=== PATIENT | female | born 1970 | race Two or more races ===

== ENCOUNTER 2021-03-13 10:30 | Inpatient (IN) | payer OTHER ==
[~2021-03-13] VITALS: Ht 152.4 cm; Wt 70.3 kg
[2021-03-13] MEDS ORDERED: VITAMIN C500 M6 PO (14:46)
[2021-03-13] MEDS ORDERED: ABATRON LIQUID474 ML PO (14:46)
== END 2021-03-18 12:30 | disposition home or self-care (01) | DRG 743 ==
LOC: O/R 03-16 07:24 → SURH 03-16 07:24
PROVIDERS: ADMIT Obstetrics & Gynecology Gynecologic Oncology; ATTEND Obstetrics & Gynecology Gynecologic Oncology
PROC: 0UT20ZZ Resection of Bilateral Ovaries, Open Approach (ICD-10-PCS; 2021-03-16)
PROC: 0UT70ZZ Resection of Bilateral Fallopian Tubes, Open Approach (ICD-10-PCS; 2021-03-16)
PROC: 0UT90ZZ Resection of Uterus, Open Approach (ICD-10-PCS; principal; 2021-03-16 16:30)
DX: D25.1 Intramural leiomyoma of uterus (principal); N83.02 Follicular cyst of left ovary; N70.11 Chronic salpingitis; N83.11 Corpus luteum cyst of right ovary; N83.291 Other ovarian cyst, right side; R19.07 Generalized intra-abdominal and pelvic swelling, mass and lump